=== PATIENT | female | born 1955 | race Caucasian/White ===

== ENCOUNTER 2018-06-18 10:02 | Inpatient (IN) | payer OTHER ==
[~2018-06-18] VITALS: Ht 167.6 cm; Wt 117.9 kg
--- NOTE | 2018-06-18 10:11 | NUR ---
Patient bib RA for c/o falling at home. Patient azerbaijani speaking only but daughter at bedside to interpret. Per daughter patient got up to use commode and ended up slipping from the commode. Per daughter she thinks it might be an MS episode similar to what patient experienced in the past. Patient c/o pain bilateral shoulder, wrists and hip pain. Respiratory even, and unlabored, no cough no sob. No GI/ distress noted. Patient in bed at lowest position, sr upx2, call light within reach. Fall precautions implemented per protocol.
[2018-06-18] MEDS ORDERED: IV NORMAL SALINE 1000 ML BAG IV ONE (10:15)
[2018-06-18] MEDS ORDERED: MORPHINE SULFATE 2 MG/1 ML DISP.SYRIN IV ONE ×2 (10:15→13:15)
[2018-06-18] MEDS ORDERED: ONDANSETRON 4 MG/2 ML VIAL IV ONE (10:15)
[2018-06-18 10:27] LABS: BASOPHILS % (AUTO) 0.4 % (0.0-2.0); EOSINOPHILS % (AUTO) 0.1 % (0.0-7.0); HEMOGLOBIN 12.3 g/dL (10.9-14.3); LYMPHOCYTES # (AUTO) 0.7 K/uL (20.0-40.0); LYMPHOCYTES % (AUTO) 6.6 % (20.5-51.5); MEAN CORPUSCULAR HEMOGLOBIN 30.7 uug (24.7-32.8); MEAN CORPUSCULAR HGB CONC 34 g/dL (32.3-35.6); MEAN CORPUSCULAR VOLUME 90.2 fL (75.5-95.3); MONOCYTES # (AUTO) 0.5 K/uL (2.0-10.0); MONOCYTES % (AUTO) 5.2 % (0.0-11.0); NEUTROPHILS # (AUTO) 9.1 K/uL (1.8-8.9); NEUTROPHILS % (AUTO) 87.7 % (38.5-71.5); PLATELET COUNT (AUTO) 250 K/uL (179-408); RED BLOOD CELL COUNT(AUTO) 3.99 MIL/uL (3.63-4.92); WHITE BLOOD COUNT (AUTO) 10.4 K/uL (3.8-11.8)
[2018-06-18] MEDS ORDERED: ONDANSETRON 4 MG/2 ML VIAL ONE (10:28)
[2018-06-18] MEDS ORDERED: MORPHINE SULFATE 4 MG/1 ML DISP.SYRIN ONE ×2 (10:28→12:47)
[2018-06-18 10:35] LABS: CREATININE 0.8 mg/dL (0.6-1.3)
[2018-06-18] MEDS ORDERED: TRAM50TA2 PO (10:55)
[2018-06-18] MEDS ORDERED: DIME240C2 PO (10:55)
[2018-06-18] MEDS ORDERED: OMEP20CA10 PO (10:55)
[2018-06-18] MEDS ORDERED: SERT50TA PO (10:55)
[2018-06-18] MEDS ORDERED: BACL10TA PO (10:55)
[2018-06-18] MEDS ORDERED: GABA-534 PO (10:55)
[2018-06-18] MEDS ORDERED: ACET-2605 PO (10:55)
[2018-06-18] MEDS ORDERED: TOLT4CAP PO (10:55)
[2018-06-18] MEDS ORDERED: CHOL50004 PO (10:55)
[2018-06-18] MEDS ORDERED: LISI-607 PO (10:55)
[2018-06-18] MEDS ORDERED: IPRA12.9 IH (10:55)
[2018-06-18] MEDS ORDERED: BISO5TAB2 PO (10:55)
[2018-06-18] MEDS ORDERED: ASPI-605 PO (10:55)
--- NOTE | 2018-06-18 12:20 | NUR ---
Call placed to [facility], Matt Seaman (JESS) has been paged.
--- NOTE | 2018-06-18 13:44 | NUR ---
patient transfered to [place] in stable condition.
[2018-06-18] MEDS ORDERED: MAGNESIUM HYDROXIDE 30 ML LIQUID UDC PO PRN (16:15)
[2018-06-18] MEDS ORDERED: ONDANSETRON 4 MG/2 ML VIAL IV PRN (16:15)
[2018-06-18] MEDS ORDERED: HYDROCODONE/APAP 5-325MG TABLET PO PRN ×2 (16:15→17:30)
[2018-06-18] MEDS ORDERED: ACETAMINOPHEN 325 MG TABLET PO PRN ×3 (16:15→19:45)
[2018-06-18] MEDS ORDERED: Z GUARD REMEDY PASTE 57 GM TUBE TOP PRN (16:15)
[2018-06-18 16:30] VITALS: BP 130/69
[2018-06-18] MEDS ORDERED: Medication Not On Formulary EA (Omeprazole 20 MG) PO SCH (17:00)
[2018-06-18] MEDS ORDERED: TRAMADOL HCL 50 MG TABLET PO SCH (17:00)
[2018-06-18] MEDS: BACLOFEN 10 MG TABLET PO SCH (18:15)
[2018-06-18] MEDS: GABAPENTIN 300 MG CAPSULE PO SCH (18:17)
[2018-06-18 18:18] LABS: *BILIRUBIN,URIN NEGATIVE (NEGATIVE); *CLARITY,URINE SLIGHTLY CLOUDY (CLEAR); *COLOR,URINE YELLOW (YELLOW); *KETONES,URINE NEGATIVE (NEGATIVE); *UROBILINOGEN,URINE 0.2 E.U./dl (NORMAL); LEUKOCYTE ESTERASE ,URINE 1+ (NEGATIVE); NITRITE, URINE POSITIVE (NEGATIVE); UGLUCOSE NEGATIVE (NEGATIVE)
[2018-06-18] MEDS: ACETAMINOPHEN ES 500 MG TABLET PO SCH (18:18)
[2018-06-18] MEDS: PREGABALIN 50 MG CAPSULE PO SCH ×2 (18:25→21:45)
[2018-06-18 18:40] LABS: *BLOOD, URINE TRACE (NEGATIVE)
[2018-06-18 18:43] LABS: BACTERIA,URINE MANY /HPF (NONE SEEN); MUCUS,URINE FEW /LPF (0-FEW); SQUAMOUS EPITHELIAL CELL,UR FEW /HPF (NONE SEEN); WBC,URINE 20-50 /HPF (0-3)
[2018-06-18] MEDS: HYDROMORPHONE 1 MG/1 ML DISP.SYRIN IV PRN (18:52)
[2018-06-18] MEDS: IV NS 1000 ML 1,000 ML IV PRN (18:52)
[2018-06-18 19:18] VITALS: BP 104/56
[2018-06-18] MEDS: IPRATROPIUM BROMIDE 0.5 MG/2.5 ML NEBU NEB SCH (19:30)
--- NOTE | 2018-06-18 19:30 | NUR ---
PATIENT RECEIVED LYING IN BED WITH DAUGHTER AT BEDSIDE. A/OX4. COMFORT MEASURES PROVIDED. BED IN LOWEST POSITION. SIDE RAILS UP X2.
--- NOTE | 2018-06-18 19:40 | NUR ---
RECEIVED CALL FROM PHARMACY STATING THAT THE MEDICATION TECFIDERA 240 MG THAT PATIENT IS TAKING AT HOME FRO MS IS NON FORMULARY AND FAMILY NEEDS TO BRING THAT MEDICINE FROM HOME. DAUGHTER NOTIFIED, SHE STATED SHE WOULD LIKE TO HOLD OFF THE MEDICATION FOR NOW WHEN THE PATIENT IS IN THE HOSPITAL . SHE THING THAT MEDICATION CAN CAUSE HER IMMUNITY LOW . SHE STATED SHE DISCUSSED WITH HER NEUROLOGIST
[2018-06-18] MEDS: HYDROCODONE/APAP 10-325 MG TABLET PO PRN (21:48)
[2018-06-18] MEDS: CEphaleXIN 250 MG CAPSULE PO SCH (21:49)
--- NOTE | 2018-06-18 23:57 | NUR ---
ORDER WAS NOT RECEIVED. PT IS IN NO RESP DISTRESS AT THIS TIME.SPO2 98%, BS CLEAR BILATERALLY. NURSE AWARE. WILL CONT TO MONITOR PT.
[2018-06-19] MEDS: IPRATROPIUM BROMIDE 0.5 MG/2.5 ML NEBU NEB SCH ×4 (01:27→19:30)
--- NOTE | 2018-06-19 01:27 | NUR ---
PT PLACED ON 2LPM VIA NC. SPO2 96% BS CLEAR BILATERALLY. PT STATES SHE IS IN NOT HAVING ANY SOB. WILL CONT TO MONITOR. NURSE AWARE.
[2018-06-19] MEDS: HYDROMORPHONE 1 MG/1 ML DISP.SYRIN IV PRN ×3 (01:38→15:10)
[2018-06-19 03:24] VITALS: BP 117/67
[2018-06-19 05:42] LABS: BASOPHILS # (AUTO) 0.1 K/uL (0.0-8.0); BASOPHILS % (AUTO) 1.2 % (0.0-2.0); EOSINOPHILS # (AUTO) 0.2 K/uL (0.0-0.7); EOSINOPHILS % (AUTO) 3.7 % (0.0-7.0); HEMATOCRIT 34.2 % (31.2-41.9); HEMOGLOBIN 11.8 g/dL (10.9-14.3); LYMPHOCYTES # (AUTO) 0.8 K/uL (20.0-40.0); LYMPHOCYTES % (AUTO) 16.5 % (20.5-51.5); MEAN CORPUSCULAR HEMOGLOBIN 31.5 uug (24.7-32.8); MEAN CORPUSCULAR HGB CONC 34 g/dL (32.3-35.6); MEAN CORPUSCULAR VOLUME 91.5 fL (75.5-95.3); MONOCYTES # (AUTO) 0.5 K/uL (2.0-10.0); MONOCYTES % (AUTO) 10.1 % (0.0-11.0); NEUTROPHILS # (AUTO) 3.3 K/uL (1.8-8.9); NEUTROPHILS % (AUTO) 68.5 % (38.5-71.5); PLATELET COUNT (AUTO) 202 K/uL (179-408); RED BLOOD CELL COUNT(AUTO) 3.74 MIL/uL (3.63-4.92); WHITE BLOOD COUNT (AUTO) 4.8 K/uL (3.8-11.8)
[2018-06-19 05:58] LABS: CREATININE 0.7 mg/dL (0.6-1.3); PHOSPHOROUS 2.9 mg/dL (2.5-4.9); POTASSIUM 3.9 mmol/L (3.5-5.1)
[2018-06-19] MEDS: PREGABALIN 50 MG CAPSULE PO SCH ×3 (05:59→22:49)
[2018-06-19] MEDS: CEphaleXIN 250 MG CAPSULE PO SCH (05:59)
[2018-06-19] MEDS: PANTOPRAZOLE SODIUM 40 MG TABLET.DR PO SCH (06:00)
[2018-06-19 06:07] LABS: THYROID STIMULATING HORMONE 1.367 mIU/mL (0.358-3.740)
--- NOTE | 2018-06-19 06:28 | NUR ---
PATIENT INTERMITTENTLY SLEEPING IN BED. PROVIDED PAIN MEDICATION FOR PAIN AND NO PAIN AT THIS TIME. ASSISTED FOR BRP NEEDED. PATIENT KEPT CLEAN AND DRY. COMFORT MEASURES PROVIDED. BED IN LOWEST POSITION. SIDE RAILS X2.
[2018-06-19] MEDS: HYDROCODONE/APAP 10-325 MG TABLET PO PRN ×2 (06:45→21:32)
[2018-06-19] MEDS ORDERED: Medication Not On Formulary EA (Bisoprolol Fumarate 5 MG) PO SCH (09:00)
[2018-06-19] MEDS: ASPIRIN EC 81 MG TABLET.DR PO SCH (09:14)
[2018-06-19] MEDS: TOLTERODINE LA 2 MG CAP.SR.24H PO SCH (09:14)
[2018-06-19] MEDS: ACETAMINOPHEN ES 500 MG TABLET PO SCH ×2 (09:14→18:01)
[2018-06-19] MEDS: SERTRALINE HCL 50 MG TABLET PO SCH (09:14)
[2018-06-19] MEDS: GABAPENTIN 300 MG CAPSULE PO SCH ×3 (09:14→18:02)
[2018-06-19] MEDS: BACLOFEN 10 MG TABLET PO SCH ×3 (09:15→18:02)
[2018-06-19] MEDS: CHOLECALCIFEROL 1,000 UNIT TABLET PO SCH (09:15)
[2018-06-19] MEDS: LISINOPRIL 5 MG TABLET PO SCH (09:18)
[2018-06-19] MEDS: ATENOLOL 50 MG TABLET PO SCH (09:18)
[2018-06-19] MEDS ORDERED: LEVOFLOXACIN 500 MG/D5W 500 MG in PREMIXED 1 EACH IV SCH (10:30)
--- NOTE | 2018-06-19 10:53 | NUR ---
PATIENT BEING TRANSPORTED BY AMBULANCE TO MRI, PAIN MEDICATION GIVEN PRIOR TO TRANSFER
[2018-06-19 11:20] VITALS: BP 120/70
[2018-06-19] MEDS: LEVOFLOXACIN 750MG/D5W 150 ML IV SCH (14:29)
[2018-06-19 15:23] VITALS: BP 105/45
[2018-06-19] MEDS: IV NS 1000 ML 1,000 ML IV PRN (18:19)
--- NOTE | 2018-06-19 19:17 | NUR ---
Patient has been cooperative with care, and continues to be in a lot of pain. Pain medications administered as ordered and requested. Bed in low position, side rails up x2. Call light in reach,.
[2018-06-19 19:18] VITALS: BP 120/70
[2018-06-19] MEDS ORDERED: predniSONE 50 MG TABLET PO SCH (20:00)
--- NOTE | 2018-06-19 20:10 | NUR ---
Pt awake, alert, in bed. No s/s of respiratory distress noted. O2 saturation 98% on 2LPM N/C. HHN tx not given at this time. Family at bedside. KENZIE Wilder notified.
[2018-06-20] MEDS: HYDROMORPHONE 1 MG/1 ML DISP.SYRIN IV PRN ×4 (01:24→23:28)
[2018-06-20] MEDS: IPRATROPIUM BROMIDE 0.5 MG/2.5 ML NEBU NEB SCH ×4 (01:30→19:38)
--- NOTE | 2018-06-20 02:12 | NUR ---
Pt awake, alert, in bed. No s/s of respiratory distress noted. O2 saturation 97% on 2LPM N/C. HHN tx not given at this time. KENZIE Wilder notified.
[2018-06-20 05:22] VITALS: BP 109/68
[2018-06-20] MEDS: HYDROCODONE/APAP 10-325 MG TABLET PO PRN ×3 (05:39→20:25)
[2018-06-20 06:30] LABS: BASOPHILS % (AUTO) 0.3 % (0.0-2.0); EOSINOPHILS % (AUTO) 0.1 % (0.0-7.0); HEMATOCRIT 37.2 % (31.2-41.9); HEMOGLOBIN 12.5 g/dL (10.9-14.3); LYMPHOCYTES # (AUTO) 0.4 K/uL (20.0-40.0); LYMPHOCYTES % (AUTO) 7.4 % (20.5-51.5); MEAN CORPUSCULAR HEMOGLOBIN 30.5 uug (24.7-32.8); MEAN CORPUSCULAR HGB CONC 34 g/dL (32.3-35.6); MONOCYTES # (AUTO) 0.1 K/uL (2.0-10.0); NEUTROPHILS # (AUTO) 4.4 K/uL (1.8-8.9); NEUTROPHILS % (AUTO) 91.2 % (38.5-71.5); PLATELET COUNT (AUTO) 246 K/uL (179-408); RED BLOOD CELL COUNT(AUTO) 4.08 MIL/uL (3.63-4.92); WHITE BLOOD COUNT (AUTO) 4.9 K/uL (3.8-11.8)
[2018-06-20] MEDS: PANTOPRAZOLE SODIUM 40 MG TABLET.DR PO SCH (06:43)
[2018-06-20] MEDS: PREGABALIN 50 MG CAPSULE PO SCH ×3 (06:43→22:10)
[2018-06-20 06:47] LABS: CREATININE 0.7 mg/dL (0.6-1.3); MAGNESIUM 1.8 mg/dL (1.8-2.4); PHOSPHOROUS 3.3 mg/dL (2.5-4.9)
--- NOTE | 2018-06-20 06:58 | NUR ---
PATIENT INTERMITTENTLY SLEEPING IN BED. PROVIDED PAIN MEDICATION FOR PAIN AND NO PAIN AT THIS TIME. PROVIDED BRP VIA BEDPAN REQUESTED AND PERICARE PERFORMED. PATIENT KEPT CLEAN AND DRY. SAFETY AND FALL PRECAUTION MEASURES IN PLACE. WILL PROVIDE INFORMATION TO ONCOMING SHIFT..
[2018-06-20] MEDS: IV NS 1000 ML 1,000 ML IV PRN ×2 (07:08→18:39)
--- NOTE | 2018-06-20 07:10 | NUR ---
RECEIVED PATIENT IN BED, AWAKE, AOX4. DENIES CHEST PAIN OR SOB. PATIENT ON 2L NC. DENIES ANY OTHER PAIN. LEFT AC IV INTACT AND FLUSHED WITH IVF NS AT 75CC/HR. SAFETY AND FALL PREVENTION IN PLACE. BED IN LOW POSITION, CALL LIGHT IN REACH. ALL NEEDS MET AT THIS TIME. WILL CONTINUE TO MONITOR.
[2018-06-20] MEDS: CHOLECALCIFEROL 1,000 UNIT TABLET PO SCH (09:06)
[2018-06-20] MEDS: TOLTERODINE LA 2 MG CAP.SR.24H PO SCH (09:07)
[2018-06-20] MEDS: GABAPENTIN 300 MG CAPSULE PO SCH ×3 (09:09→16:32)
[2018-06-20] MEDS: BACLOFEN 10 MG TABLET PO SCH ×3 (09:09→16:32)
[2018-06-20] MEDS: SERTRALINE HCL 50 MG TABLET PO SCH (09:10)
[2018-06-20] MEDS: ACETAMINOPHEN ES 500 MG TABLET PO SCH ×2 (09:11→16:32)
[2018-06-20] MEDS: ASPIRIN EC 81 MG TABLET.DR PO SCH (09:12)
[2018-06-20] MEDS: ATENOLOL 50 MG TABLET PO SCH (09:15)
[2018-06-20] MEDS: LISINOPRIL 5 MG TABLET PO SCH (09:15)
[2018-06-20 11:25] VITALS: BP 96/51
[2018-06-20] MEDS ORDERED: GADODIAMIDE 5 MMOL/10 ML VIAL ONE (12:30)
[2018-06-20] MEDS ORDERED: INSULIN REGULAR, HUMAN 300 UNIT/3 ML VIAL SQ PRN (13:00)
[2018-06-20] MEDS ORDERED: BLOOD SUGAR DIAGNOSTIC 1 EACH STRIP VI SCH (13:00)
[2018-06-20] MEDS ORDERED: DEXTROSE 50% 50 ML DISP.SYRIN IV PRN ×2 (13:00→13:45)
[2018-06-20] MEDS: LEVOFLOXACIN 750MG/D5W 150 ML IV SCH (13:15)
[2018-06-20 15:06] VITALS: BP 106/55
[2018-06-20] MEDS: BLOOD SUGAR DIAGNOSTIC 1 EACH STRIP VI SCH ×2 (16:31→21:32)
[2018-06-20] MEDS: INSULIN REGULAR, HUMAN 300 UNIT/3 ML VIAL SQ PRN ×2 (17:23→21:53)
--- NOTE | 2018-06-20 18:06 | NUR ---
PATIENT AOX4 IN BED. COMPLIANT WITH ALL CARE. PAIN MEDICATION GIVEN ORDERED. HEAT PACK PROVIDED TO DECREASE PAIN. LT. AC INTACT WITH IVF NS AT 125CC/HR ORDERED. VITAL SIGNS STABLE THROUGHOUT THE SHIFT. PATIENT STARTED ON MILD SS DUE TO STEROID ADMINISTRATION. SAFETY AND FALL PREVENTION CONTINUED.
[2018-06-20 20:30] VITALS: BP 112/64
[2018-06-20] MEDS ORDERED: methylPREDNISolone SOD SUCC 500 MG in IV DEXTROSE 5% 100 ML IV ONE (21:00)
[2018-06-21] MEDS: IPRATROPIUM BROMIDE 0.5 MG/2.5 ML NEBU NEB SCH ×4 (01:16→19:08)
[2018-06-21] MEDS: HYDROCODONE/APAP 10-325 MG TABLET PO PRN ×3 (02:23→20:32)
[2018-06-21] MEDS: IV NS 1000 ML 1,000 ML IV PRN ×2 (03:31→12:41)
[2018-06-21 05:03] VITALS: BP 120/66
[2018-06-21] MEDS: PANTOPRAZOLE SODIUM 40 MG TABLET.DR PO SCH (06:15)
[2018-06-21] MEDS: PREGABALIN 50 MG CAPSULE PO SCH ×3 (06:15→22:24)
[2018-06-21 06:32] LABS: BASOPHILS % (AUTO) 0.1 % (0.0-2.0); HEMATOCRIT 35.8 % (31.2-41.9); HEMOGLOBIN 11.9 g/dL (10.9-14.3); LYMPHOCYTES # (AUTO) 0.5 K/uL (20.0-40.0); LYMPHOCYTES % (AUTO) 5.8 % (20.5-51.5); MEAN CORPUSCULAR HEMOGLOBIN 30.4 uug (24.7-32.8); MEAN CORPUSCULAR HGB CONC 33 g/dL (32.3-35.6); MEAN CORPUSCULAR VOLUME 91.2 fL (75.5-95.3); MONOCYTES # (AUTO) 0.1 K/uL (2.0-10.0); NEUTROPHILS # (AUTO) 7.3 K/uL (1.8-8.9); NEUTROPHILS % (AUTO) 93.1 % (38.5-71.5); PLATELET COUNT (AUTO) 255 K/uL (179-408); RED BLOOD CELL COUNT(AUTO) 3.92 MIL/uL (3.63-4.92); WHITE BLOOD COUNT (AUTO) 7.8 K/uL (3.8-11.8)
[2018-06-21 06:43] LABS: CREATININE 0.7 mg/dL (0.6-1.3); MAGNESIUM 1.9 mg/dL (1.8-2.4); PHOSPHOROUS 3.6 mg/dL (2.5-4.9); POTASSIUM 4.1 mmol/L (3.5-5.1)
--- NOTE | 2018-06-21 07:20 | NUR ---
PATIENT ALERT AND ORIENTED X4 IN BED LAYING COMFORTABLY. LEFT AC IV INTACT WITH IVF NS AT 125CC/HR ORDERED. SAFETY AND FALL PREVENTION CONTINUED. PATIENT IN LOW BED POSITION, SIDE RAILS UP X2 AND BED ALARM ON.
[2018-06-21] MEDS: BLOOD SUGAR DIAGNOSTIC 1 EACH STRIP VI SCH ×4 (07:52→22:24)
[2018-06-21] MEDS: HYDROMORPHONE 1 MG/1 ML DISP.SYRIN IV PRN ×2 (08:33→14:43)
[2018-06-21] MEDS: ACETAMINOPHEN ES 500 MG TABLET PO SCH ×2 (08:35→16:57)
[2018-06-21] MEDS: ASPIRIN EC 81 MG TABLET.DR PO SCH (08:35)
[2018-06-21] MEDS: BACLOFEN 10 MG TABLET PO SCH ×3 (08:35→16:57)
[2018-06-21] MEDS: GABAPENTIN 300 MG CAPSULE PO SCH ×3 (08:35→16:57)
[2018-06-21] MEDS: CHOLECALCIFEROL 1,000 UNIT TABLET PO SCH (08:35)
[2018-06-21] MEDS: TOLTERODINE LA 2 MG CAP.SR.24H PO SCH (08:35)
[2018-06-21] MEDS: SERTRALINE HCL 50 MG TABLET PO SCH (08:36)
[2018-06-21] MEDS: LISINOPRIL 5 MG TABLET PO SCH (08:38)
[2018-06-21] MEDS: ATENOLOL 50 MG TABLET PO SCH (08:39)
[2018-06-21 11:30] VITALS: BP 108/56
[2018-06-21] MEDS: INSULIN REGULAR, HUMAN 300 UNIT/3 ML VIAL SQ PRN ×2 (12:22→17:29)
[2018-06-21] MEDS: LEVOFLOXACIN 750MG/D5W 150 ML IV SCH (12:39)
[2018-06-21 15:10] VITALS: BP 100/54
--- NOTE | 2018-06-21 18:50 | NUR ---
PATIENT ALERT AND ORIENTED X4 IN BED LAYING COMFORTABLY. LEFT AC IV INTACT WITH IVF NS AT 125CC/HR ORDERED. SAFETY AND FALL PREVENTION CONTINUED. PATIENT IN LOW BED POSITION, SIDE RAILS UP X2 AND BED ALARM ON, WILL CONTINUE TO MONITOR.
[2018-06-21 20:00] VITALS: BP 109/56
[2018-06-21] MEDS ORDERED: methylPREDNISolone SOD SUCC 1,000 MG in IV DEXTROSE 5% 250 ML IV SCH (21:00)
[2018-06-22] MEDS: IPRATROPIUM BROMIDE 0.5 MG/2.5 ML NEBU NEB SCH ×4 (00:30→19:20)
[2018-06-22] MEDS: HYDROMORPHONE 1 MG/1 ML DISP.SYRIN IV PRN ×3 (01:10→15:17)
[2018-06-22] MEDS: IV NS 1000 ML 1,000 ML IV PRN ×3 (01:47→20:41)
[2018-06-22 05:52] VITALS: BP 121/63
[2018-06-22] MEDS: PANTOPRAZOLE SODIUM 40 MG TABLET.DR PO SCH (06:11)
[2018-06-22] MEDS: PREGABALIN 50 MG CAPSULE PO SCH ×3 (06:11→21:25)
[2018-06-22] MEDS: BLOOD SUGAR DIAGNOSTIC 1 EACH STRIP VI SCH ×4 (06:15→21:34)
[2018-06-22] MEDS: HYDROCODONE/APAP 10-325 MG TABLET PO PRN ×3 (06:16→20:34)
[2018-06-22 06:38] LABS: BASOPHILS % (AUTO) 0.1 % (0.0-2.0); HEMATOCRIT 35.6 % (31.2-41.9); LYMPHOCYTES # (AUTO) 0.4 K/uL (20.0-40.0); LYMPHOCYTES % (AUTO) 7.1 % (20.5-51.5); MEAN CORPUSCULAR HEMOGLOBIN 30.9 uug (24.7-32.8); MEAN CORPUSCULAR HGB CONC 34 g/dL (32.3-35.6); MEAN CORPUSCULAR VOLUME 91.7 fL (75.5-95.3); MONOCYTES # (AUTO) 0.1 K/uL (2.0-10.0); NEUTROPHILS # (AUTO) 5.3 K/uL (1.8-8.9); NEUTROPHILS % (AUTO) 91.8 % (38.5-71.5); PLATELET COUNT (AUTO) 229 K/uL (179-408); RED BLOOD CELL COUNT(AUTO) 3.89 MIL/uL (3.63-4.92); WHITE BLOOD COUNT (AUTO) 5.8 K/uL (3.8-11.8)
[2018-06-22 06:56] LABS: CREATININE 0.8 mg/dL (0.6-1.3); MAGNESIUM 1.9 mg/dL (1.8-2.4); PHOSPHOROUS 3.4 mg/dL (2.5-4.9); POTASSIUM 4.2 mmol/L (3.5-5.1)
--- NOTE | 2018-06-22 07:06 | NUR ---
PATIENT ALERT ORIENTED, NO SOB NO CHEST PAIN, CONT ON PAIN MANAGEMENT. PATIENT COMPLAIN OF RIGHT ARMS AND SHOULDER PAIN, LEFT ARMS AND SHOULDER PAIN. PAIN MEDICATIONS EFFECTIVE. RENDERED GOOD ROBERT CARE USES BED BERGERON OF BLADDER ELIMINATIONS. CONT TO MONITOR. CONT TO MONITOR BLOOD SUGAR.
--- NOTE | 2018-06-22 07:15 | NUR ---
RECEIVED PATIENT LAYING IN BED IN LOW POSITION WITH SIDE RAILS UP AND BED ALARM ON, PAIN C/O OF PAIN AND PAIN MEDS GIVEN TO PROVIDE COMFORT. NO S/S OF ACUTE DISTRESS NOTED, WILL CONTINUE TO MONITOR, PROVIDE SAFETY AT ALL TIMES, WILL CONTINUE TREATMENT PLAN.
[2018-06-22] MEDS: BACLOFEN 10 MG TABLET PO SCH ×3 (08:15→17:22)
[2018-06-22] MEDS: GABAPENTIN 300 MG CAPSULE PO SCH ×3 (08:15→17:22)
[2018-06-22] MEDS: CHOLECALCIFEROL 1,000 UNIT TABLET PO SCH (08:16)
[2018-06-22] MEDS: ACETAMINOPHEN ES 500 MG TABLET PO SCH ×2 (08:16→17:22)
[2018-06-22] MEDS: SERTRALINE HCL 50 MG TABLET PO SCH (08:16)
[2018-06-22] MEDS: TOLTERODINE LA 2 MG CAP.SR.24H PO SCH (08:16)
[2018-06-22] MEDS: ASPIRIN EC 81 MG TABLET.DR PO SCH (08:16)
[2018-06-22] MEDS: ATENOLOL 50 MG TABLET PO SCH (08:17)
[2018-06-22] MEDS: LISINOPRIL 5 MG TABLET PO SCH (08:17)
[2018-06-22 08:20] VITALS: BP 127/71
[2018-06-22] MEDS: INSULIN REGULAR, HUMAN 300 UNIT/3 ML VIAL SQ PRN ×4 (08:33→21:42)
[2018-06-22 11:54] VITALS: BP 140/59
[2018-06-22] MEDS: LEVOFLOXACIN 750MG/D5W 150 ML IV SCH (13:09)
[2018-06-22 15:40] VITALS: BP 136/77
--- NOTE | 2018-06-22 17:40 | NUR ---
PATIENT HAS NOT HAD ANY BOWEL MOVEMENT, FINANCIAL ECONOMIST REPORTED NURSE, NURSE ASK PATIENT IF SHE WANT ANYTHING FOR HER CONSTIPATION , PATIENT REFUSED.CONTINUE TO OFFER, EXPLAIN ,BUT PATIENT STILL REFUSED.
--- NOTE | 2018-06-22 18:42 | NUR ---
PATIENT LAYING IN BED IN LOW POSITION WITH SIDE RAILS UPX2 AND BED ALARM ON, ALERT AND ORIENTED, ON 2 LPM OXYGEN VIA NASAL CANNULA. PAIN C/O OF PAIN AND PAIN MEDS GIVEN TO PROVIDE COMFORT. NO S/S OF ACUTE DISTRESS NOTED, KEPT CLEAN DRY AT ALL TIMES WILL CONTINUE TO MONITOR, PROVIDE SAFETY AND COMFORT AT ALL TIMES, WILL CONTINUE TREATMENT PLAN.
--- NOTE | 2018-06-22 19:10 | NUR ---
RECEIVED PATIENT AWAKE AND ALERT IN BED WITH DAUGHTER AT BEDSIDE. NO COMPLAINTS OF PAIN OR ACUTE DISTRESS. ALL SAFETY AND FALL PRECAUTION MEASURES IN PLACE. BED IN LOWEST POSITION AND LOCKED. 2 SIDE RAILS UP AND LOCKED. CALL LIGHT WITHIN REACH AT ALL TIMES. WILL CONTINUE TO MONITOR.
[2018-06-22 19:25] VITALS: BP 120/59
[2018-06-22] MEDS: methylPREDNISolone SOD SUCC 1,000 MG in IV DEXTROSE 5% 250 ML IV SCH (20:35)
[2018-06-23] MEDS: IPRATROPIUM BROMIDE 0.5 MG/2.5 ML NEBU NEB SCH ×4 (01:26→19:20)
[2018-06-23] MEDS: HYDROMORPHONE 1 MG/1 ML DISP.SYRIN IV PRN ×3 (01:30→17:50)
[2018-06-23 03:28] VITALS: BP 150/86
[2018-06-23] MEDS: PREGABALIN 50 MG CAPSULE PO SCH ×3 (05:39→21:15)
[2018-06-23] MEDS: HYDROCODONE/APAP 10-325 MG TABLET PO PRN ×3 (05:39→21:53)
[2018-06-23] MEDS: BLOOD SUGAR DIAGNOSTIC 1 EACH STRIP VI SCH ×4 (05:45→21:24)
[2018-06-23] MEDS: PANTOPRAZOLE SODIUM 40 MG TABLET.DR PO SCH (06:14)
[2018-06-23 06:37] LABS: BASOPHILS % (AUTO) 0.1 % (0.0-2.0); HEMATOCRIT 36.9 % (31.2-41.9); HEMOGLOBIN 12.2 g/dL (10.9-14.3); LYMPHOCYTES # (AUTO) 0.4 K/uL (20.0-40.0); LYMPHOCYTES % (AUTO) 7.1 % (20.5-51.5); MEAN CORPUSCULAR HEMOGLOBIN 30.4 uug (24.7-32.8); MEAN CORPUSCULAR HGB CONC 33 g/dL (32.3-35.6); MEAN CORPUSCULAR VOLUME 92.1 fL (75.5-95.3); MONOCYTES # (AUTO) 0.1 K/uL (2.0-10.0); MONOCYTES % (AUTO) 1.2 % (0.0-11.0); NEUTROPHILS # (AUTO) 4.9 K/uL (1.8-8.9); NEUTROPHILS % (AUTO) 91.6 % (38.5-71.5); PLATELET COUNT (AUTO) 239 K/uL (179-408); WHITE BLOOD COUNT (AUTO) 5.3 K/uL (3.8-11.8)
[2018-06-23 07:01] LABS: CREATININE 0.8 mg/dL (0.6-1.3); PHOSPHOROUS 3.3 mg/dL (2.5-4.9); POTASSIUM 4.1 mmol/L (3.5-5.1)
--- NOTE | 2018-06-23 07:16 | NUR ---
PATIENT ALERT AND ORIENTED, NO S/S SOB, NO C/O PAIN AT THIS TIME, CONTINUE ON PAIN MANAGEMENT. CONTINUE TO MONITOR. CONTINUE TREATMENT PLAN.
[2018-06-23] MEDS: BACLOFEN 10 MG TABLET PO SCH ×3 (08:48→17:31)
[2018-06-23] MEDS: GABAPENTIN 300 MG CAPSULE PO SCH ×3 (08:49→17:31)
[2018-06-23] MEDS: TOLTERODINE LA 2 MG CAP.SR.24H PO SCH (08:49)
[2018-06-23] MEDS: ASPIRIN EC 81 MG TABLET.DR PO SCH (08:49)
[2018-06-23] MEDS: ACETAMINOPHEN ES 500 MG TABLET PO SCH ×2 (08:49→17:31)
[2018-06-23] MEDS: ATENOLOL 50 MG TABLET PO SCH (08:50)
[2018-06-23] MEDS: LISINOPRIL 5 MG TABLET PO SCH (08:51)
[2018-06-23] MEDS: CHOLECALCIFEROL 1,000 UNIT TABLET PO SCH (08:51)
[2018-06-23] MEDS: SERTRALINE HCL 50 MG TABLET PO SCH (08:51)
[2018-06-23] MEDS: INSULIN REGULAR, HUMAN 300 UNIT/3 ML VIAL SQ PRN ×3 (08:56→21:52)
[2018-06-23] MEDS: IV NS 1000 ML 1,000 ML IV PRN ×2 (09:01→21:15)
[2018-06-23 11:49] VITALS: BP 120/62
[2018-06-23] MEDS: LEVOFLOXACIN 750MG/D5W 150 ML IV SCH (13:21)
[2018-06-23 15:50] VITALS: BP 131/56
--- NOTE | 2018-06-23 18:34 | NUR ---
PATIENT LAYING IN BED IN LOW POSITION WITH SIDE RAILS UPX2 AND BED ALARM ON, ALERT AND ORIENTED, ON 2 LPM OXYGEN VIA NASAL CANNULA. PATIENT C/O OF PAIN AND PAIN MEDS GIVEN TO PROVIDE COMFORT. NO S/S OF ACUTE DISTRESS NOTED, KEPT CLEAN DRY AT ALL TIMES WILL CONTINUE TO MONITOR, PROVIDE SAFETY AND COMFORT AT ALL TIMES, WILL CONTINUE TREATMENT PLAN.
[2018-06-23 19:27] VITALS: BP 109/55
[2018-06-23] MEDS: methylPREDNISolone SOD SUCC 1,000 MG in IV DEXTROSE 5% 250 ML IV SCH (21:14)
[2018-06-24] MEDS: IPRATROPIUM BROMIDE 0.5 MG/2.5 ML NEBU NEB SCH ×5 (00:41→19:29)
[2018-06-24] MEDS: HYDROMORPHONE 1 MG/1 ML DISP.SYRIN IV PRN ×2 (01:57→20:27)
[2018-06-24 03:19] VITALS: BP 126/63
[2018-06-24] MEDS: PANTOPRAZOLE SODIUM 40 MG TABLET.DR PO SCH (06:22)
[2018-06-24] MEDS: PREGABALIN 50 MG CAPSULE PO SCH ×3 (06:22→21:24)
[2018-06-24] MEDS: BLOOD SUGAR DIAGNOSTIC 1 EACH STRIP VI SCH ×4 (06:28→21:24)
[2018-06-24 06:33] LABS: BASOPHILS % (AUTO) 0.1 % (0.0-2.0); HEMATOCRIT 37.2 % (31.2-41.9); HEMOGLOBIN 12.5 g/dL (10.9-14.3); LYMPHOCYTES # (AUTO) 0.3 K/uL (20.0-40.0); LYMPHOCYTES % (AUTO) 6.7 % (20.5-51.5); MEAN CORPUSCULAR HEMOGLOBIN 30.6 uug (24.7-32.8); MEAN CORPUSCULAR HGB CONC 34 g/dL (32.3-35.6); MEAN CORPUSCULAR VOLUME 90.9 fL (75.5-95.3); MONOCYTES # (AUTO) 0.1 K/uL (2.0-10.0); MONOCYTES % (AUTO) 1.5 % (0.0-11.0); NEUTROPHILS # (AUTO) 4.1 K/uL (1.8-8.9); NEUTROPHILS % (AUTO) 91.7 % (38.5-71.5); PLATELET COUNT (AUTO) 218 K/uL (179-408); RED BLOOD CELL COUNT(AUTO) 4.09 MIL/uL (3.63-4.92); WHITE BLOOD COUNT (AUTO) 4.5 K/uL (3.8-11.8)
[2018-06-24] MEDS: HYDROCODONE/APAP 10-325 MG TABLET PO PRN ×2 (06:39→14:42)
[2018-06-24 06:59] LABS: CREATININE 0.8 mg/dL (0.6-1.3); MAGNESIUM 2.2 mg/dL (1.8-2.4); PHOSPHOROUS 3.8 mg/dL (2.5-4.9); POTASSIUM 4.2 mmol/L (3.5-5.1)
[2018-06-24] MEDS ORDERED: PREG50CA PO (07:00)
[2018-06-24] MEDS ORDERED: HYDR10TA PO (07:00)
[2018-06-24] MEDS ORDERED: CHOL10002 PO (07:00)
[2018-06-24] MEDS ORDERED: INSU100V28 SQ (07:00)
[2018-06-24] MEDS ORDERED: LEVO750T21 PO (07:00)
[2018-06-24] MEDS ORDERED: PANT40TA2 PO (07:00)
[2018-06-24] MEDS ORDERED: ATEN50TA PO (07:00)
--- NOTE | 2018-06-24 07:04 | NUR ---
PATIENT SLEPT INTERMITTENTLY THROUGHOUT NIGHT. ALL DUE PRESCRIBED MEDICATIONS GIVEN ORDERED AND TOLERATED WELL. ALL NURSING NEEDS MET PROMPTLY, PATIENT KEPT WARM AND DRY AT ALL TIMES. ALL SAFETY AND FALL PRECAUTIONS IN PLACE. BED IN LOW POSITION, BRAKE IS LOCKED. 2 SIDE RAILS UP AND LOCKED. CALL LIGHT WITHIN REACH AT ALL TIMES.
--- NOTE | 2018-06-24 07:15 | NUR ---
PATIENT LAYING IN BED IN LOW POSITION WITH SIDE RAILS UPX2 AND BED ALARM ON, ALERT AND ORIENTED, ON 2 L OXYGEN VIA NASAL CANNULA. NO S/S OF ACUTE DISTRESS NOTED, KEPT CLEAN DRY AT ALL TIMES WILL CONTINUE TO MONITOR, PROVIDE SAFETY AND COMFORT AT ALL TIMES, WILL CONTINUE TREATMENT PLAN.
[2018-06-24] MEDS: BACLOFEN 10 MG TABLET PO SCH ×3 (08:59→17:25)
[2018-06-24] MEDS ORDERED: HYDROCORTISONE 10 MG TABLET PO SCH (09:00)
[2018-06-24] MEDS: CHOLECALCIFEROL 1,000 UNIT TABLET PO SCH (09:00)
[2018-06-24] MEDS: ATENOLOL 50 MG TABLET PO SCH ×2 (09:00→09:02)
[2018-06-24] MEDS: LISINOPRIL 5 MG TABLET PO SCH (09:01)
[2018-06-24] MEDS: GABAPENTIN 300 MG CAPSULE PO SCH ×3 (09:01→17:25)
[2018-06-24] MEDS: TOLTERODINE LA 2 MG CAP.SR.24H PO SCH (09:01)
[2018-06-24] MEDS: SERTRALINE HCL 50 MG TABLET PO SCH (09:01)
[2018-06-24] MEDS: ASPIRIN EC 81 MG TABLET.DR PO SCH (09:02)
[2018-06-24] MEDS: ACETAMINOPHEN ES 500 MG TABLET PO SCH ×2 (09:02→17:25)
[2018-06-24] MEDS: IV NS 1000 ML 1,000 ML IV PRN ×2 (09:13→21:25)
[2018-06-24 11:34] VITALS: BP 107/51
[2018-06-24] MEDS ORDERED: methylPREDNISolone SOD SUCC 1,000 MG in IV DEXTROSE 5% 250 ML IV ONE (12:30)
[2018-06-24] MEDS: INSULIN REGULAR, HUMAN 300 UNIT/3 ML VIAL SQ PRN ×3 (12:38→21:31)
[2018-06-24] MEDS: LEVOFLOXACIN 750 MG TABLET PO SCH (13:18)
[2018-06-24 13:54] VITALS: BP 119/67
[2018-06-24 15:51] VITALS: BP 102/66
--- NOTE | 2018-06-24 18:00 | NUR ---
PATIENT LAYING IN BED IN LOW POSITION WITH SIDE RAILS UPX2 AND BED ALARM ON, ALERT AND ORIENTED x4, ON 2 L OXYGEN VIA NASAL CANNULA. PATIENT C/O OF PAIN AND PAIN MEDS GIVEN TO PROVIDE COMFORT. NO S/S OF ACUTE DISTRESS NOTED, KEPT CLEAN DRY AT ALL TIMES WILL CONTINUE TO MONITOR, PROVIDE SAFETY AND COMFORT AT ALL TIMES, WILL CONTINUE TREATMENT PLAN.
[2018-06-24 20:12] VITALS: BP 96/45
[2018-06-25] MEDS: IPRATROPIUM BROMIDE 0.5 MG/2.5 ML NEBU NEB SCH ×4 (00:36→19:11)
[2018-06-25] MEDS: HYDROCODONE/APAP 10-325 MG TABLET PO PRN ×3 (02:12→15:09)
[2018-06-25 04:00] VITALS: BP 100/61
[2018-06-25] MEDS: PREGABALIN 50 MG CAPSULE PO SCH ×3 (05:42→21:51)
[2018-06-25] MEDS: PANTOPRAZOLE SODIUM 40 MG TABLET.DR PO SCH (06:02)
[2018-06-25] MEDS: BLOOD SUGAR DIAGNOSTIC 1 EACH STRIP VI SCH ×4 (07:00→20:17)
--- NOTE | 2018-06-25 07:20 | NUR ---
RECEIVED PATIENT RESTING COMFORTABLY, BED IN LOW POSITION WITH SIDE RAILS UPX2 AND BED ALARM ON, ALERT AND ORIENTED x4, ON 2 L OXYGEN VIA NASAL CANNULA. NO S/S OF ACUTE DISTRESS NOTED, KEPT CLEAN DRY AT ALL TIMES WILL CONTINUE TO MONITOR, PROVIDE SAFETY AND COMFORT AT ALL TIMES, WILL CONTINUE TREATMENT PLAN.
--- NOTE | 2018-06-25 07:24 | NUR ---
PATIENT AWAKE NO SOB NO CHEST PAIN, CONT ON PAIN MANAGEMENT, VOIDING FREELY. CONT TO MONITOR.
[2018-06-25] MEDS: TOLTERODINE LA 2 MG CAP.SR.24H PO SCH (08:41)
[2018-06-25] MEDS: BACLOFEN 10 MG TABLET PO SCH ×3 (08:41→17:25)
[2018-06-25] MEDS: CHOLECALCIFEROL 1,000 UNIT TABLET PO SCH (08:41)
[2018-06-25] MEDS: SERTRALINE HCL 50 MG TABLET PO SCH (08:41)
[2018-06-25] MEDS: GABAPENTIN 300 MG CAPSULE PO SCH ×3 (08:41→17:14)
[2018-06-25] MEDS: ASPIRIN EC 81 MG TABLET.DR PO SCH (08:42)
[2018-06-25] MEDS: LISINOPRIL 5 MG TABLET PO SCH (08:42)
[2018-06-25] MEDS: ACETAMINOPHEN ES 500 MG TABLET PO SCH ×2 (08:42→17:14)
[2018-06-25] MEDS: IV NS 1000 ML 1,000 ML IV PRN ×2 (08:52→23:24)
[2018-06-25] MEDS: ATENOLOL 50 MG TABLET PO SCH (09:00)
[2018-06-25 11:40] VITALS: BP 111/56
[2018-06-25] MEDS: LEVOFLOXACIN 750 MG TABLET PO SCH (13:06)
[2018-06-25] MEDS: HYDROMORPHONE 1 MG/1 ML DISP.SYRIN IV PRN ×2 (14:32→19:52)
[2018-06-25 15:51] VITALS: BP 108/62
[2018-06-25] MEDS ORDERED: [UNRECOGNIZED DRUG - REMARK] PO PRN (16:00)
[2018-06-25] MEDS ORDERED: HYDROCORTISONE 10 MG TABLET PO ONE (16:00)
--- NOTE | 2018-06-25 17:44 | NUR ---
PATIENT IS RESTING COMFORTABLY, NO S/S OF DISTRESS NOTED,PRESCRIBED MEDICATION ARE GIVEN, TOLERATED WELL, COOPERATIVE WITH PLAN OF CARE, WILL CONTINUE TO MONITOR
--- NOTE | 2018-06-25 19:45 | NUR ---
Received patient awake and alert. Noted she has no IV access and is complaining of generalized pain. She has oxygen support at 2lpm, tolerated. Noted patient was supposed to be discharged to ARU, however due to insurance issues patient will be discharged to a SNF, which case management is still working on. Will offer to reinsert IV access for better pain management. Bed in low position, locked, side rails up x2, call light within reach. Will continue to monitor.
[2018-06-25 20:00] VITALS: BP 104/54
--- NOTE | 2018-06-25 20:00 | NUR ---
Patient agreed to reinsert IV access. IV access, 22g inserted on right hand and hooked back to IV fluid. PRN Dilaudid IV given for severe pain. Will continue to monitor.
[2018-06-25] MEDS: INSULIN REGULAR, HUMAN 300 UNIT/3 ML VIAL SQ PRN (20:35)
[2018-06-26] MEDS: HYDROMORPHONE 1 MG/1 ML DISP.SYRIN IV PRN ×3 (00:29→15:57)
[2018-06-26] MEDS: IPRATROPIUM BROMIDE 0.5 MG/2.5 ML NEBU NEB SCH ×4 (00:35→19:21)
[2018-06-26 04:36] VITALS: BP 134/74
[2018-06-26] MEDS: PANTOPRAZOLE SODIUM 40 MG TABLET.DR PO SCH (06:16)
[2018-06-26] MEDS: PREGABALIN 50 MG CAPSULE PO SCH ×3 (06:16→22:35)
[2018-06-26] MEDS: BLOOD SUGAR DIAGNOSTIC 1 EACH STRIP VI SCH ×4 (06:38→22:09)
[2018-06-26] MEDS: HYDROCODONE/APAP 10-325 MG TABLET PO PRN ×2 (06:47→19:03)
--- NOTE | 2018-06-26 07:05 | NUR ---
PATIENT IS ON HER BED, RESTING, NO S/S OF DISTRESS NOTED, SUPERVISOR PUMPING RN NOTIFIED IV SITE HAS CHANGED TO RIGHT HAND 22 G, INTACT AND PATENT NS IV IS RUNNING 75ML/HR, WILL CONTINUE ACCORDING TO CARE PLAN
[2018-06-26] MEDS: INSULIN REGULAR, HUMAN 300 UNIT/3 ML VIAL SQ PRN ×3 (07:44→22:39)
[2018-06-26] MEDS: CHOLECALCIFEROL 1,000 UNIT TABLET PO SCH (08:13)
[2018-06-26] MEDS: SERTRALINE HCL 50 MG TABLET PO SCH (08:13)
[2018-06-26] MEDS: BACLOFEN 10 MG TABLET PO SCH ×3 (08:13→16:33)
[2018-06-26] MEDS: ACETAMINOPHEN ES 500 MG TABLET PO SCH ×2 (08:13→16:32)
[2018-06-26] MEDS: TOLTERODINE LA 2 MG CAP.SR.24H PO SCH (08:13)
[2018-06-26] MEDS: GABAPENTIN 300 MG CAPSULE PO SCH ×3 (08:14→16:32)
[2018-06-26] MEDS: ASPIRIN EC 81 MG TABLET.DR PO SCH (08:14)
[2018-06-26] MEDS: LISINOPRIL 5 MG TABLET PO SCH (08:14)
[2018-06-26] MEDS: ATENOLOL 50 MG TABLET PO SCH (08:37)
--- NOTE | 2018-06-26 08:39 | NUR ---
PATIENT'S HEART RATE IS 57 , I HOLD 9:00 AM ATENOLOL
[2018-06-26] MEDS ORDERED: HYDROCORTISONE 10 MG TABLET PO ONE (09:00)
[2018-06-26] MEDS: IV NS 1000 ML 1,000 ML IV PRN (10:33)
[2018-06-26 11:15] VITALS: BP 111/54
[2018-06-26] MEDS: LEVOFLOXACIN 750 MG TABLET PO SCH (12:58)
--- NOTE | 2018-06-26 15:07 | NUR ---
PATIENT IS RESTING, ALL MEDICATIONS ARE GIVEN PRESCRIBED,IV NS IS RUNNING NOW 50ML/HR PER DR. GARLAND, PATIENT IS COOPERATIVE AND COMPLAINT WITH PLAN OF CARE, WILL CONTINUE WITH PLAN OF CARE
[2018-06-26 15:28] VITALS: BP 103/43
--- NOTE | 2018-06-26 18:21 | NUR ---
PATIENT CONTINUES TO IMPROVE HER STRENGTH EVERY DAY LITTLE BY LITTLE, CONTINUES ORAL STEROID TAPER DOWN PER MD ORDER, POSSIBLE D/C TO [facility] ON THURSDAY PER MARILYN,PATENT IS RESTING COMFORTABLY, WILL ENDORSE TO UPCOMING SHIFT NURSE FOR CONTINUITY OF CARE
--- NOTE | 2018-06-26 19:50 | NUR ---
received patient from the day shift. Fair mood. no acute distress noted. comfort and safety provided.
[2018-06-26 20:00] VITALS: BP 98/50
[2018-06-27] MEDS: HYDROMORPHONE 1 MG/1 ML DISP.SYRIN IV PRN ×3 (00:40→17:19)
[2018-06-27] MEDS: IPRATROPIUM BROMIDE 0.5 MG/2.5 ML NEBU NEB SCH ×4 (01:36→19:32)
[2018-06-27] MEDS: HYDROCODONE/APAP 10-325 MG TABLET PO PRN ×3 (04:28→20:24)
[2018-06-27 04:49] VITALS: BP 149/68
[2018-06-27] MEDS: PREGABALIN 50 MG CAPSULE PO SCH ×3 (06:07→21:30)
[2018-06-27] MEDS: PANTOPRAZOLE SODIUM 40 MG TABLET.DR PO SCH (06:07)
[2018-06-27] MEDS: IV NS 1000 ML 1,000 ML IV PRN (06:09)
--- NOTE | 2018-06-27 07:00 | NUR ---
Patient is awake, reported mild pain, no acute distress noted. Good mood. Comfort and safety provided. Endorsed report to the day shift RN July.
--- NOTE | 2018-06-27 07:10 | NUR ---
Received patient in the bed awake alert and oriented, no acute distress noted. provide comfort and safety at all times. iv intact and patent, will continue treatment.
[2018-06-27] MEDS: BLOOD SUGAR DIAGNOSTIC 1 EACH STRIP VI SCH ×4 (07:47→20:30)
[2018-06-27] MEDS: TOLTERODINE LA 2 MG CAP.SR.24H PO SCH (08:03)
[2018-06-27] MEDS: ASPIRIN EC 81 MG TABLET.DR PO SCH (08:04)
[2018-06-27] MEDS: SERTRALINE HCL 50 MG TABLET PO SCH (08:04)
[2018-06-27] MEDS: GABAPENTIN 300 MG CAPSULE PO SCH ×3 (08:04→17:24)
[2018-06-27] MEDS: BACLOFEN 10 MG TABLET PO SCH ×3 (08:04→17:22)
[2018-06-27] MEDS: ACETAMINOPHEN ES 500 MG TABLET PO SCH ×2 (08:04→17:24)
[2018-06-27] MEDS: CHOLECALCIFEROL 1,000 UNIT TABLET PO SCH (08:04)
[2018-06-27] MEDS: ATENOLOL 50 MG TABLET PO SCH (08:11)
[2018-06-27] MEDS: LISINOPRIL 5 MG TABLET PO SCH (08:11)
[2018-06-27] MEDS ORDERED: HYDROCORTISONE 10 MG TABLET PO SCH (09:00)
[2018-06-27] MEDS ORDERED: HYDROCORTISONE 10 MG TABLET PO ONE (09:00)
[2018-06-27 11:12] VITALS: BP 94/40
[2018-06-27] MEDS: INSULIN REGULAR, HUMAN 300 UNIT/3 ML VIAL SQ PRN ×3 (12:28→20:34)
[2018-06-27 15:20] VITALS: BP 107/47
--- NOTE | 2018-06-27 18:29 | NUR ---
Patient in the bed awake alert and oriented, no acute distress noted. provide comfort and safety at all times. IV intact and patent, PRN pain medications given , ambulate with assist to the bathroom with walker. IV fluids discontinue . Consume dinner adequately. will continue treatment plan with the night nurse.
[2018-06-27 19:29] VITALS: BP 105/59
[2018-06-28] MEDS: HYDROCODONE/APAP 10-325 MG TABLET PO PRN ×4 (01:02→15:17)
[2018-06-28] MEDS: IPRATROPIUM BROMIDE 0.5 MG/2.5 ML NEBU NEB SCH ×4 (01:52→19:30)
[2018-06-28] MEDS: HYDROMORPHONE 1 MG/1 ML DISP.SYRIN IV PRN (04:15)
--- NOTE | 2018-06-28 05:59 | NUR ---
Patient slept intermittently throughout the night. Complained of generalized pain, mainly on upper extremities. PRN [place] and Dilaudid administered. IV on R wrist infiltrated. IV #22 inserted on R hand, saline locked. Patient currently asleep in bed, no s/s of acute distress noted. Tolerated routine medications. Comfort provided at all times. Safety measures implemented and effective. Received report for possible discharge today. Will endorse to incoming nurse.
[2018-06-28] MEDS: PANTOPRAZOLE SODIUM 40 MG TABLET.DR PO SCH (06:31)
[2018-06-28] MEDS: PREGABALIN 50 MG CAPSULE PO SCH ×2 (06:31→13:05)
[2018-06-28] MEDS: BLOOD SUGAR DIAGNOSTIC 1 EACH STRIP VI SCH ×3 (06:37→17:16)
[2018-06-28 07:45] VITALS: BP 123/58
[2018-06-28] MEDS: CHOLECALCIFEROL 1,000 UNIT TABLET PO SCH (08:15)
[2018-06-28] MEDS: TOLTERODINE LA 2 MG CAP.SR.24H PO SCH (08:15)
[2018-06-28] MEDS: ACETAMINOPHEN ES 500 MG TABLET PO SCH ×2 (08:15→17:16)
[2018-06-28] MEDS: ASPIRIN EC 81 MG TABLET.DR PO SCH (08:15)
[2018-06-28] MEDS: BACLOFEN 10 MG TABLET PO SCH ×3 (08:15→17:16)
[2018-06-28] MEDS: GABAPENTIN 300 MG CAPSULE PO SCH ×3 (08:15→17:15)
[2018-06-28] MEDS: SERTRALINE HCL 50 MG TABLET PO SCH (08:16)
[2018-06-28] MEDS: LISINOPRIL 5 MG TABLET PO SCH (08:17)
[2018-06-28] MEDS: ATENOLOL 50 MG TABLET PO SCH (08:19)
[2018-06-28] MEDS ORDERED: HYDROCORTISONE 10 MG TABLET PO ONE (09:00)
[2018-06-28 11:45] VITALS: BP 91/45
[2018-06-28] MEDS: INSULIN REGULAR, HUMAN 300 UNIT/3 ML VIAL SQ PRN ×2 (12:17→17:26)
[2018-06-28 15:21] VITALS: BP 123/55
--- NOTE | 2018-06-28 16:45 | NUR ---
SPOKE WITH PATIENT'S DAUGHTER, DAUGHTER UPSET DUE TO RN NOT ADMINISTERING DILAUDID IV. EXPLAINED TO PATIENT AND PATIENT'S DAUGHTER MEDICATION NOT ORDERED BREAKTHROUGH PAIN. [facility] [employer] NOTIFIED. PER SUPPORT TEAM ASSOC, ADMINISTER [place] ONLY. PATIENT EDUCATION PROVIDED. PATIENT VERBALIZED UNDERSTANDING.
--- NOTE | 2018-06-28 18:00 | NUR ---
PATIENT LEFT THE UNIT VIA GURNEY ACCOMPANIED BY SPOUSE. IV ACCESS REMOVED.
--- NOTE | 2018-06-28 18:15 | NUR ---
REPORT GIVEN TO KENZIE CARRILLO. INFORMED HYDROCORTISONE TAPERING DOSAGE. TODAY IS THE 4TH DAY 170MG.
--- NOTE | 2018-06-28 18:30 | NUR ---
DC INSTRUCTIONS GIVEN TO PATIENT'S DAUGHTER ROSHNICHRISTOPHER. DISCHARGE PACKET GIVEN TO PATIENT.
[2018-06-29] MEDS ORDERED: HYDROCORTISONE 10 MG TABLET PO ONE (09:00)
== END 2018-06-28 22:00 | DRG 43 ==
LOC: ER 10:02 → MEDSURG3 13:19
PROVIDERS: ADMIT Registered Nurse; ATTEND Registered Nurse
DX: G35 Multiple sclerosis (principal); J15.9 Unspecified bacterial pneumonia; E66.01 Morbid (severe) obesity due to excess calories; G50.0 Trigeminal neuralgia; G89.4 Chronic pain syndrome; N39.0 Urinary tract infection, site not specified; Z98.1 Arthrodesis status; T22.011A Burn of unspecified degree of right forearm, initial encounter; X19.XXXA Contact with other heat and hot substances, initial encounter; Y93.G3 Activity, cooking and baking; Y92.89 Other specified places as the place of occurrence of the external cause; Z79.82 Long term (current) use of aspirin; M47.892 Other spondylosis, cervical region; R73.9 Hyperglycemia, unspecified; M25.512 Pain in left shoulder; Z91.81 History of falling; E04.2 Nontoxic multinodular goiter; I10 Essential (primary) hypertension; Z71.3 Dietary counseling and surveillance; M25.78 Osteophyte, vertebrae; R79.89 Other specified abnormal findings of blood chemistry; H46.9 Unspecified optic neuritis; Z79.899 Other long term (current) drug therapy
CPT/HCPCS: 36415; 70030-TC; 71045; 72192; 73020; 73502; 83735; 84100; 84443; 85025; 85730; 87086; 87400; 93005; 94640; 94664; 97110; 97112; 97116; 97530; A4663; A9150; A9579; G0378; J1170; J1815; J1956; J2270; J2405; J2930; J3590; J7030; J7042; J7060; J7512